=== PATIENT | male | born 1970 | race Caucasian/White ===

== ENCOUNTER 2019-07-22 08:21 | Emergency (ER) | payer SELFPAY ==
[2019-07-22 08:25] VITALS: BP 138/84
== END 2019-07-22 08:50 | disposition left against medical advice (07) ==
LOC: ER 08:21
DX: Z53.21 Procedure and treatment not carried out due to patient leaving prior to being seen by health care provider (principal)

== ENCOUNTER 2020-05-31 10:27 | Emergency (ER) | payer BC ==
[2020-05-31 11:26] VITALS: BP 153/98
[2020-05-31 12:01] LABS: ABSOLUTE BASOPHILS # (AUTO) 0.1 10^3/uL (0.0-0.2); ABSOLUTE EOSINOPHILS # (AUTO) 0.3 10^3/uL (0.0-0.6); ABSOLUTE LYMPHOCYTES (AUTO) 1.5 10^3/uL (0.5-4.7); ABSOLUTE MONOCYTES (AUTO) 0.6 10^3/uL (0.1-1.4); ABSOLUTE NEUT (AUTO) 6.1 10^3/uL (1.7-8.2); EOSINOPHILS % (AUTO) 3.2 % (0-6); HEMATOCRIT 41.2 % (37.9-51.0); LYMPHOCYTES % (AUTO) 17.4 % (13-45); MEAN CORPUSCULAR HEMOGLOBIN 30.8 pg (27.0-33.4); MEAN CORPUSCULAR HGB CONC 34.1 g/dL (32.0-36.0); MEAN CORPUSCULAR VOLUME 90 fl (80-97); MONOCYTES % (AUTO) 6.6 % (3-13); PLATELET COUNT 250 10^3/uL (150-450); RED BLOOD COUNT 4.56 10^6/uL (4.35-5.55); RED CELL DISTRIBUTION WIDTH 15.2 % (11.5-14.0); SEGMENTED NEUTROPHILS % (AUTO) 71.8 % (42-78); TOTAL CELLS COUNTED % (AUTO) 100 %; WHITE BLOOD COUNT 8.5 10^3/uL (4.0-10.5)
--- NOTE | 2020-05-31 12:01 | RADIOLOGY REPORT (SQ) ---
EXAM DESCRIPTION: CHEST SINGLE VIEW IMAGES COMPLETED DATE/TIME: 05/31/2020 10:42 am REASON FOR STUDY: SOB COMPARISON: 10/21/2016 EXAM PARAMETERS: NUMBER OF VIEWS: One view. TECHNIQUE: Single frontal radiographic view of the chest acquired. RADIATION DOSE: NA LIMITATIONS: None. FINDINGS: LUNGS AND PLEURA: No opacities, masses or pneumothorax. No pleural effusion. MEDIASTINUM AND HILAR STRUCTURES: No masses. Contour normal. HEART AND VASCULAR STRUCTURES: Heart normal in size. Normal vasculature. BONES: No acute findings. HARDWARE: None in the chest. OTHER: No other significant finding. IMPRESSION: NO ACUTE RADIOGRAPHIC FINDING IN THE CHEST. TECHNICAL DOCUMENTATION: JOB ID: [id number] 2010 [employer]- All Rights Reserved Reading location - IP/workstation name: [email or web address]
--- NOTE | 2020-05-31 12:21 | ER Document Report ---
ED General - General Chief Complaint: Insect Bite Stated Complaint: SHORT OF BREATH,SHAKY Time Seen by Provider: 05/31/20 12:19 TRAVEL OUTSIDE OF THE [place] IN LAST 30 DAYS: No - HPI Patient complains to provider of: Numerous bug bites concerns for scabies Notes: Patient has a great deal of bug bites especially in his bilateral inguinal areas and upper extremities. Itching is driving him nuts. Denies fever chills or other symptoms. - Related Data Allergies/Adverse Reactions: aspirin Allergy (Unknown, Verified 10/21/16 07:21) Hives Past Medical History - Social History Smoking Status: Current Every Day Smoker Drug Abuse: Cocaine Family History: CVA - father Patient has homicidal ideation: No Pulmonary Medical History: Reports: Hx Asthma - Immunizations Hx Diphtheria, Pertussis, Tetanus Vaccination: No Physical Exam - Vital signs Vitals: Temp Pulse Resp BP Pulse Ox 97.5 F 111 H 16 154/99 H 99 05/31/20 10:32 05/31/20 10:32 05/31/20 10:32 05/31/20 10:32 05/31/20 10:32 - Notes Notes: PHYSICAL EXAMINATION: GENERAL: Well-appearing, well-nourished and in no acute distress. HEAD: Atraumatic, normocephalic. EYES: Pupils equal round and reactive to light, extraocular movements intact, sclera anicteric, conjunctiva are normal. ENT: nares patent, oropharynx clear without exudates. Moist mucous membranes. NECK: Normal range of motion, EXTREMITIES: Normal range of motion, no pitting or edema. No cyanosis. NEUROLOGICAL: Cranial nerves grossly intact. Normal speech, normal gait. Norm al sensory and motor exams. PSYCH: Normal mood, normal affect. SKIN: Large burrows on lesions concerning for chiggers or scabies Course - Re-evaluation Re-evalutation: 05/31/20 12:40 Ill-appearing man presents with apparent scabies infection. Stable vitals all labs within normal limits. Patient be given permethrin prescription. Follow-up PCP return if any changes - Vital Signs Vital signs: Temp Pulse Resp BP Pulse Ox 97.5 F 105 H 20 153/98 H 98 05/31/20 11:20 05/31/20 11:20 05/31/20 11:20 05/31/20 11:20 05/31/20 11:20 - Laboratory Result Diagrams: 05/31/20 11:53 05/31/20 11:53 Laboratory results interpreted by me: 05/31/20 05/31/20 11:53 11:53 RDW 15.2 H Chloride 109 H Carbon Dioxide 21 L Glucose 74 L Discharge - Discharge Clinical Impression: Scabies Condition: Stable Disposition: HOME, SELF-CARE Instructions: Scabies ([facility]) Prescriptions: Permethrin [Nix 1% Lotion 59 ml] 1 applic TP ONCE PRN #60 bottle PRN Reason:
[2020-05-31 12:25] LABS: ALBUMIN 3.9 g/dL (3.5-5.0); ALKALINE PHOSPHATASE 77 U/L (38-126); ANION GAP 9 (5-19); ASPARTATE AMINO TRANSFERASE 42 U/L (17-59); BILIRUBIN,TOTAL 0.6 mg/dL (0.2-1.3); BLOOD UREA NITROGEN 16 mg/dL (7-20); CALCIUM 9.2 mg/dL (8.4-10.2); CARBON DIOXIDE 21 mmol/L (22-30); CHLORIDE 109 mmol/L (98-107); GLUCOSE 74 mg/dL (75-110); TOTAL PROTEIN 6.7 g/dL (6.3-8.2)
[2020-05-31] MEDS ORDERED: NORMAL SALINE 1000 ML 1,000 ML IV ONE (12:25)
[2020-05-31] MEDS ORDERED: DIPHENHYDRAMINE HCL 50 MG CAPSULE PO ONE (12:37)
== END 2020-05-31 13:46 | disposition home or self-care (01) ==
LOC: ER 10:27
DX: B86 Scabies (principal); F17.200 Nicotine dependence, unspecified, uncomplicated; F14.10 Cocaine abuse, uncomplicated; J45.909 Unspecified asthma, uncomplicated; Z88.8 Allergy status to other drugs, medicaments and biological substances
CPT/HCPCS: 99283; 96360; 36415; 85025; 80053; 71045; J7030